=== PATIENT | male | born 1980 | race Caucasian/White ===

== ENCOUNTER 2025-01-13 15:27 | Emergency (ER) | payer BC, SELFPAY ==
[2025-01-13 16:40] LABS: #Basophils 0.1 thou/uL (0.0-0.2); #Eosinophils 0.0 thou/uL (0.0-0.7); #Lymphocytes 1.1 thou/uL (1.20-3.40); #Monocytes 1.3 thou/uL (0.11-0.59); #Neutrophils 7.4 thou/uL (1.40-6.50); %Basophils 1.0 % (0.0-1.0); %Eosinophils 0.0 % (0.0-10.0); %Lymphocytes 11.5 % (21.0-51.0); %Monocytes 12.8 % (0.0-10.0); %Neutrophils 74.7 % (42.0-75.0); Hematocrit 30.4 % (42.0-52.0); Hemoglobin 9.7 g/dL (14.0-18.0); Mean Corpuscular Hemoglobin 33.3 pg (27.0-31.0); Mean Corpuscular Volume 104.4 fl (78.0-98.0); Platelet Count 204 10x3/uL (130-400); Red Blood Cell (RBC) Count 2.91 mill/uL (4.70-6.10); White Blood Cell (WBC) Count 9.9 10x3/uL (4.8-10.8)
[2025-01-13 16:44] LABS: INR-International Normal Ratio 1.1; Prothrombin Time 14.1 sec (12.0-14.7)
[2025-01-13 16:45] LABS: PTT 30.7 sec (22.9-36.1)
[2025-01-13 16:54] LABS: ALT (SGPT) 10 U/L (Less than 45); AST (SGOT) 31 U/L (11-34); Albumin 2.9 g/dL (3.1-4.5); Alkaline Phosphatase 66 U/L (40-110); Anion Gap 16 mmol/L (10-20); BUN (Urea Nitrogen) 7 mg/dL (8.9-20.6); Bilirubin, Total 0.4 mg/dL (0.3-1.2); Calc. Creatinine Clearance 0 mL/min (70-130); Calcium 8.2 mg/dL (7.8-10.44); Carbon Dioxide 21 mmol/L (22-29); Chloride 106 mmol/L (98-107); Globulin 4.1 g/dL (2.4-3.5); Glucose 98 mg/dL (70-105); Potassium 3.9 mmol/L (3.5-5.1); Sodium 139 mmol/L (136-145)
== END 2025-01-13 19:13 | disposition short-term general hospital (02) ==
LOC: MADERS 15:27
DX: S72.141A Displaced intertrochanteric fracture of right femur, initial encounter for closed fracture (principal); E88.09 Other disorders of plasma-protein metabolism, not elsewhere classified; R60.9 Edema, unspecified; G40.909 Epilepsy, unspecified, not intractable, without status epilepticus; F17.210 Nicotine dependence, cigarettes, uncomplicated; W01.0XXA Fall on same level from slipping, tripping and stumbling without subsequent striking against object, initial encounter
CPT/HCPCS: 72170; 80053; 83880; 85025; 85610; 85730; 93005; 96374